=== PATIENT | male | born 1945 | race Caucasian/White ===

== ENCOUNTER 2017-05-27 10:38 | Outpatient (CLI) | payer MEDICARE, BC ==
[2017-05-27 18:47] LABS: ALBUMIN 4.1 g/dL (3.2-5.5); ALBUMIN/GLOBULIN RATIO 1.2 (1.0-2.2); ALKALINE PHOSPHATASE 61 IU/L (42-121); ALT ALANINE AMINOTRANSFERASE 53 IU/L (10-60); AST ASPARTATE AMINOTRANSFERASE 49 IU/L (10-42); BILIRUBIN,TOTAL 1.2 mg/dL (0.2-1.0); BUN - BLOOD UREA NITROGEN 15 mg/dL (6-20); CALCIUM 9.4 mg/dL (8.5-10.3); CARBON DIOXIDE - CO2 26 mmol/L (21-32); CHLORIDE 99 mmol/L (101-111); CHOL/HDL RATIO 4.8 (<5.0); CHOLESTEROL 261 mg/dL; CREATININE 0.6 mg/dL (0.6-1.2); GFR - MDRD 132 (>89); GLUCOSE 116 mg/dL (70-100); HDL CHOLESTEROL 54 mg/dL; LDL CHOLESTEROL,CALCULATED 188 mg/dL; LDL/HDL RATIO 3.5 (<3.6); SODIUM 133 mmol/L (135-145); TOTAL PROTEIN 7.4 g/dL (6.7-8.2); VLDL CHOLESTEROL 19 mg/dL
== END 2017-05-27 10:39 | disposition home or self-care (01) ==
LOC: LAB.F 10:38
PROVIDERS: ATTEND Family Medicine
DX: Z00.00 Encounter for general adult medical examination without abnormal findings (principal); I10 Essential (primary) hypertension; C61 Malignant neoplasm of prostate
CPT/HCPCS: 36415; 80053; 80061; 83721; 84153

== ENCOUNTER 2017-05-29 13:34 | Outpatient (CLI) | payer MEDICARE, BC | END 2017-05-29 13:35 | disposition home or self-care (01) | LOC: DI 13:34 | PROVIDERS: ATTEND Family Medicine | DX: R01.1 Cardiac murmur, unspecified (principal); I77.810 Thoracic aortic ectasia; I51.7 Cardiomegaly | CPT/HCPCS: 93306 ==

== ENCOUNTER 2017-07-19 09:46 | Day surgery (SDC) | payer MEDICARE, BC ==
[2017-07-19] MEDS ORDERED: LACTATED RINGERS 1,000 ML IV ONE ×2 (10:05→11:55)
[2017-07-19] MEDS ORDERED: MIDAZOLAM 2 MG/2 ML VIAL IVP ONE (11:02)
[2017-07-19] MEDS ORDERED: fentaNYL 250 MCG/5 ML VIAL IVP ONE (11:02)
[2017-07-19 12:22] VITALS: BP 127/66
== END 2017-07-19 09:47 | disposition home or self-care (01) ==
LOC: SDS 09:46
PROVIDERS: ATTEND Surgery
PROC: 0DBK8ZZ Excision of Ascending Colon, Via Natural or Artificial Opening Endoscopic (ICD-10-PCS; principal; 2017-07-19 10:45)
DX: Z12.11 Encounter for screening for malignant neoplasm of colon (principal); D12.2 Benign neoplasm of ascending colon; I10 Essential (primary) hypertension; E78.00 Pure hypercholesterolemia, unspecified
CPT/HCPCS: 45380; J3010; J7120; 88305

== ENCOUNTER 2017-08-01 14:50 | Outpatient (CLI) | payer MEDICARE, BC ==
--- NOTE | 2017-08-01 19:19 | XRAY Report ---
RIGHT HIP AND PELVIS: 08/01/2017 INDICATION: Joint pain. FINDINGS: Frontal view of the hips and pelvis and frogleg lateral view of the right hip demonstrate mild osteoarthritis. There is no evidence of acute fracture or dislocation. Fiducial markers are noted in the prostate bed. IMPRESSION: MILD OSTEOARTHRITIS. NO EVIDENCE OF FRACTURE. TD: 08/01/2017 19:18
== END 2017-08-01 14:51 | disposition home or self-care (01) ==
LOC: DI.S 14:50
PROVIDERS: ATTEND Nurse Practitioner Family
DX: M25.551 Pain in right hip (principal); M16.0 Bilateral primary osteoarthritis of hip; C61 Malignant neoplasm of prostate

== ENCOUNTER 2018-01-24 10:35 | Outpatient (CLI) | payer MEDICARE, BC ==
[2018-01-24 17:36] LABS: BUN - BLOOD UREA NITROGEN 10 mg/dL (6-20); CALCIUM 9.3 mg/dL (8.5-10.3); CARBON DIOXIDE - CO2 29 mmol/L (21-32); CHLORIDE 95 mmol/L (101-111); CHOL/HDL RATIO 4.3 (<5.0); CHOLESTEROL 273 mg/dL; CREATININE 0.6 mg/dL (0.6-1.2); GFR - MDRD 132 (>89); GLUCOSE 119 mg/dL (70-100); HDL CHOLESTEROL 64 mg/dL; LDL CHOLESTEROL,CALCULATED 192 mg/dL; SODIUM 130 mmol/L (135-145); VLDL CHOLESTEROL 17 mg/dL
== END 2018-01-24 10:36 | disposition home or self-care (01) ==
LOC: LAB.F 10:35
PROVIDERS: ATTEND Internal Medicine
DX: I10 Essential (primary) hypertension (principal); E78.5 Hyperlipidemia, unspecified; C61 Malignant neoplasm of prostate
CPT/HCPCS: 36415; 80048; 80061; 83721; 84153

== ENCOUNTER 2018-08-10 10:30 | Outpatient (CLI) | payer MEDICARE, BC ==
[2018-08-10 17:31] LABS: ALBUMIN 3.9 g/dL (3.2-5.5); ALBUMIN/GLOBULIN RATIO 1.1 (1.0-2.2); ALKALINE PHOSPHATASE 65 IU/L (42-121); ALT ALANINE AMINOTRANSFERASE 46 IU/L (10-60); AST ASPARTATE AMINOTRANSFERASE 47 IU/L (10-42); BILIRUBIN,TOTAL 0.8 mg/dL (0.2-1.0); BUN - BLOOD UREA NITROGEN 15 mg/dL (6-20); CALCIUM 9.5 mg/dL (8.5-10.3); CARBON DIOXIDE - CO2 28 mmol/L (21-32); CHLORIDE 99 mmol/L (101-111); CHOL/HDL RATIO 3.9 (<5.0); CHOLESTEROL 245 mg/dL; CREATININE 0.6 mg/dL (0.6-1.2); GFR - MDRD 132 (>89); GLUCOSE 129 mg/dL (70-100); HDL CHOLESTEROL 63 mg/dL; LDL CHOLESTEROL,CALCULATED 167 mg/dL; LDL/HDL RATIO 2.7 (<3.6); SODIUM 135 mmol/L (135-145); TOTAL PROTEIN 7.3 g/dL (6.7-8.2); VLDL CHOLESTEROL 15 mg/dL
[2018-08-10 17:32] LABS: HB2 TOTAL 14.4 g/dL; HEMOGLOBIN A1C 0.64 g/dL; HEMOGLOBIN A1C % 6.2 % (4.6-6.2)
== END 2018-08-10 10:31 | disposition home or self-care (01) ==
LOC: LAB.F 10:30
PROVIDERS: ATTEND Internal Medicine
DX: E78.5 Hyperlipidemia, unspecified (principal); R73.01 Impaired fasting glucose
CPT/HCPCS: 36415; 80053; 80061; 83036; 83721

== ENCOUNTER 2020-01-24 16:14 | Outpatient (CLI) | payer MEDICARE, BC ==
[2020-01-24 20:46] LABS: BASOPHILS # (AUTO) 0.1 10^3/uL (0.0-0.1); BASOPHILS % (AUTO) 1.8 %; EOSINOPHILS # (AUTO) 0.2 10^3/uL (0.0-0.7); EOSINOPHILS % (AUTO) 4.6 %; HGB - HEMOGLOBIN 12.9 g/dL (14.0-18.0); LYMPHOCYTES # (AUTO) 0.7 10^3/uL (1.5-3.5); LYMPHOCYTES % (AUTO) 20.4 %; MEAN CORPUSCULAR HEMOGLOBIN 33.5 pg (27.0-31.0); MEAN CORPUSCULAR HGB CONC 33.9 g/dL (32.0-36.0); MEAN CORPUSCULAR VOLUME 98.7 fL (80.0-94.0); MEAN PLATELET VOLUME 11.8 fL (7.4-11.4); MONOCYTES # (AUTO) 0.6 10^3/uL (0.0-1.0); MONOCYTES % (AUTO) 17.9 %; NEUTROPHILS # (AUTO) 1.8 10^3/uL (1.5-6.6); PLT - PLATELET COUNT 116 10^3/uL (130-450); RED BLOOD COUNT 3.85 10^6/uL (4.70-6.10); RED CELL DISTRIBUTION WIDTH 12.7 % (12.0-15.0); WHITE BLOOD COUNT 3.3 x10^3/uL (4.8-10.8)
[2020-01-24 20:55] LABS: ALBUMIN 3.8 g/dL (3.2-5.5); ALBUMIN/GLOBULIN RATIO 1.1 (1.0-2.2); BILIRUBIN,TOTAL 0.8 mg/dL (0.2-1.0); CALCIUM 8.9 mg/dL (8.5-10.3); CREATININE 0.6 mg/dL (0.6-1.2); TOTAL PROTEIN 7.2 g/dL (6.7-8.2)
[2020-01-29 12:57] LABS: ALBUMIN 3.8 g/dL (3.8-4.8); ALPHA 1 GLOBULIN 0.3 g/dL (0.2-0.3); ALPHA 2 GLOBULIN 0.7 g/dL (0.5-0.9); BETA 1 GLOBULIN 0.4 g/dL (0.4-0.6); BETA 2 GLOBULIN 0.3 g/dL (0.2-0.5); GAMMA GLOBULIN 1.3 g/dL (0.8-1.7)
== END 2020-01-24 16:15 | disposition home or self-care (01) ==
LOC: LAB.S 16:14
PROVIDERS: ATTEND Internal Medicine Hematology & Oncology
DX: C90.30 Solitary plasmacytoma not having achieved remission (principal)
CPT/HCPCS: 36415; 80053; 81599; 83615; 84155; 84165; 85025; 86334

== ENCOUNTER 2020-01-27 13:04 | Outpatient (CLI) | payer MEDICARE, BC | END 2020-01-27 13:05 | disposition home or self-care (01) | LOC: LAB.S 13:04 | PROVIDERS: ATTEND Internal Medicine Hematology & Oncology | DX: C90.30 Solitary plasmacytoma not having achieved remission (principal) | CPT/HCPCS: 36415; 83615; 83883 ==

== ENCOUNTER 2020-04-28 15:00 | Outpatient (CLI) | payer MEDICARE, BC ==
[2020-04-28 20:28] LABS: BASOPHILS # (AUTO) 0.1 10^3/uL (0.0-0.1); BASOPHILS % (AUTO) 1.8 %; EOSINOPHILS # (AUTO) 0.1 10^3/uL (0.0-0.7); EOSINOPHILS % (AUTO) 3.3 %; HGB - HEMOGLOBIN 12.5 g/dL (14.0-18.0); LYMPHOCYTES # (AUTO) 0.6 10^3/uL (1.5-3.5); LYMPHOCYTES % (AUTO) 16.7 %; MEAN CORPUSCULAR HEMOGLOBIN 34.1 pg (27.0-31.0); MEAN CORPUSCULAR HGB CONC 34.1 g/dL (32.0-36.0); MEAN PLATELET VOLUME 12.4 fL (7.4-11.4); MONOCYTES # (AUTO) 0.4 10^3/uL (0.0-1.0); MONOCYTES % (AUTO) 10.4 %; NEUTROPHILS # (AUTO) 2.3 10^3/uL (1.5-6.6); NEUTROPHILS % (AUTO) 67.2 %; PLT - PLATELET COUNT 107 10^3/uL (130-450); RED BLOOD COUNT 3.67 10^6/uL (4.70-6.10); RED CELL DISTRIBUTION WIDTH 12.5 % (12.0-15.0); WHITE BLOOD COUNT 3.4 x10^3/uL (4.8-10.8)
[2020-04-28 21:02] LABS: ALBUMIN 3.7 g/dL (3.2-5.5); ALBUMIN/GLOBULIN RATIO 1.2 (1.0-2.2); BILIRUBIN,TOTAL 0.8 mg/dL (0.2-1.0); CALCIUM 8.8 mg/dL (8.5-10.3); CREATININE 0.6 mg/dL (0.6-1.2); TOTAL PROTEIN 6.9 g/dL (6.7-8.2)
== END 2020-04-28 15:01 | disposition home or self-care (01) ==
LOC: LAB.S 15:00
PROVIDERS: ATTEND Internal Medicine Hematology & Oncology
DX: C90.30 Solitary plasmacytoma not having achieved remission (principal)
CPT/HCPCS: 36415; 80053; 81599; 83615; 83883; 84153; 84155; 84165; 85025; 86334

== ENCOUNTER 2020-07-31 12:20 | Outpatient (CLI) | payer MEDICARE, BC ==
[2020-07-31 20:02] LABS: BASOPHILS % (AUTO) 2.9 %; EOSINOPHILS % (AUTO) 4.3 %; HCT - HEMATOCRIT 37.8 % (42.0-52.0); LYMPHOCYTES % (AUTO) 24.5 %; MEAN CORPUSCULAR HGB CONC 34.4 g/dL (32.0-36.0); MEAN PLATELET VOLUME 11.4 fL (7.4-11.4); MONOCYTES % (AUTO) 17.3 %; PLT - PLATELET COUNT 120 10^3/uL (130-450); RED BLOOD COUNT 3.82 10^6/uL (4.70-6.10); RED CELL DISTRIBUTION WIDTH 12.7 % (12.0-15.0); WHITE BLOOD COUNT 2.1 x10^3/uL (4.8-10.8)
[2020-07-31 20:06] LABS: ABNORMAL LYMPHS % (MANUAL) 0 %
[2020-07-31 20:10] LABS: ALBUMIN 3.9 g/dL (3.2-5.5); ALBUMIN/GLOBULIN RATIO 1.1 (1.0-2.2); BILIRUBIN,TOTAL 0.9 mg/dL (0.2-1.0); CALCIUM 9.1 mg/dL (8.5-10.3); CREATININE 0.6 mg/dL (0.6-1.2); POTASSIUM 3.5 mmol/L (3.5-5.0); TOTAL PROTEIN 7.4 g/dL (6.7-8.2)
[2020-07-31 20:32] LABS: BAND NEUTROPHILS % (MANUAL) 2 %; BASOPHILS # (MANUAL) 0.1 10^3/uL (0-0.1); BASOPHILS % (MANUAL) 4 %; EOSINOPHILS # (MANUAL) 0.1 10^3/uL (0-0.7); LYMPHOCYTES # (MANUAL) 0.5 10^3/uL (1.5-3.5); LYMPHOCYTES % (MANUAL) 24 %; MONOCYTES # (MANUAL) 0.5 10^3/uL (0.0-1.0); NUCLEATED RBC (MANUAL) 1 %
[2020-07-31 20:33] LABS: PLATELET ESTIMATE, MANUAL DECREASED (<130,000) (NORMAL); PLATELET MORPHOLOGY 1+ GIANT PLATELETS (NORMAL); RBC MORPHOLOGY (MULTIPLE) NORMAL APPEARANCE (NORMAL); WBC MORPHOLOGY (MULTIPLE) NORMAL APPEARANCE (NORMAL)
[2020-07-31 20:35] LABS: DIFFERENTIAL COMMENT MANUAL DIFFERENTIAL
[2020-08-05 15:42] LABS: ALBUMIN 3.8 g/dL (3.8-4.8); ALPHA 1 GLOBULIN 0.3 g/dL (0.2-0.3); ALPHA 2 GLOBULIN 0.7 g/dL (0.5-0.9); BETA 1 GLOBULIN 0.4 g/dL (0.4-0.6); BETA 2 GLOBULIN 0.3 g/dL (0.2-0.5); GAMMA GLOBULIN 1.3 g/dL (0.8-1.7)
[2020-08-07 13:26] LABS: KAPPA/LAMBDA LC FREE RATIO 2.14 (0.26-1.65)
== END 2020-07-31 12:21 | disposition home or self-care (01) ==
LOC: LAB.S 12:20
PROVIDERS: ATTEND Internal Medicine Hematology & Oncology
DX: C90.30 Solitary plasmacytoma not having achieved remission (principal)
CPT/HCPCS: 36415; 80053; 81599; 82784; 83615; 83883; 84155; 84165; 85025; 86334

== ENCOUNTER 2021-02-14 10:07 | Outpatient (CLI) | payer MEDICARE, BC ==
[2021-02-14 15:34] LABS: CHOL/HDL RATIO 3.4 (<5.0); CHOLESTEROL 218 mg/dL; HDL CHOLESTEROL 64 mg/dL; LDL CHOLESTEROL,CALCULATED 137 mg/dL; LDL/HDL RATIO 2.1 (<3.6); TRIGLYCERIDES 84 mg/dL; VLDL CHOLESTEROL 17 mg/dL
[2021-02-14 20:14] LABS: ESTIMATED AVERAGE GLUCOSE 143 mg/dL (70-100); HEMOGLOBIN A1c% 6.6 % (4.27-6.07)
== END 2021-02-14 10:08 | disposition home or self-care (01) ==
LOC: LAB.S 10:07
PROVIDERS: ATTEND Internal Medicine
DX: E78.5 Hyperlipidemia, unspecified (principal); R73.9 Hyperglycemia, unspecified
CPT/HCPCS: 36415; 80061; 83036; 83721